=== PATIENT | male | born 1995 | race Caucasian/White ===

== ENCOUNTER 2016-12-22 23:20 | Emergency (ER) | payer OTHER ==
[2016-12-22 23:39] VITALS: TEMP 98.9
[2016-12-23] MEDS ORDERED: SODIUM CHLORIDE 0.9% 1,000 ML IV STA (00:24)
[2016-12-23 01:20] LABS: Basophils # (A) 0.1 k/uL (0-0.2); Basophils % (A) 0 %; CH 29.6; CHCM 34.6; Eosinophils # (A) 0.1 k/uL (0-0.7); Eosinophils % (A) 1 %; HCT 44.7 % (39.0-53.0); HDW 2.36; HGB 14.9 gm/dL (13.0-17.5); Luc # (Auto) 0.13; Luc % (Auto) 1; Lymphocytes % (A) 16 %; MCH 28.6 pg (25.0-35.0); MCHC 33.3 g/dL (31.0-37.0); MCV 85.9 fL (80.0-100.0); Mean Platelet Volume 7.5; Monocytes # (A) 0.4 k/uL (0-1.0); Monocytes % (A) 3 %; Neutrophils # (A) 9.8 k/uL (1.3-7.7); Neutrophils % (A) 79 %; RBC 5.21 m/uL (4.30-5.90); RDW 13.1 % (11.5-15.5); WBC 12.5 k/uL (3.8-10.6); WBC (Perox) 11.16
[2016-12-23 01:35] LABS: ALT 44 U/L (21-72); AST 24 U/L (17-59); Acetaminophen <10.0 ug/mL; Alcohol <10 mg/dL; Alkaline Phosphatase 83 U/L (38-126); Anion Gap 13 mmol/L; Blood Urea Nitrogen 14 mg/dL (9-20); Calcium 9.9 mg/dL (8.4-10.2); Carbon Dioxide 23 mmol/L (22-30); Chloride 106 mmol/L (98-107); Glucose 90 mg/dL (74-99); Non-African American GFR(MDRD) >60 (>60 ml/min/1.73 sqM); Salicylate <1.0 mg/dL; Sodium 142 mmol/L (137-145); Total Bilirubin 0.3 mg/dL (0.2-1.3); Total Protein 7.6 g/dL (6.3-8.2)
--- NOTE | 2016-12-23 05:05 | ED ---
Overdose HPI - General Chief Complaint: Overdose Stated Complaint: Mental Health Time Seen by Provider: 12/23/16 00:23 Source: patient Mode of arrival: ambulatory Limitations: no limitations - History of Present Illness MD Complaint: intentional overdose Onset/Timin -: hour(s) Intent: want to escape How Overdose Was Discovered: other Treatments Prior to Arrival: none - Related Data Home Medications Medication Instructions Recorded Confirmed ARIPiprazole [Abilify] 5 mg PO DAILY 12/22/16 12/22/16 Cholecalciferol (Vitamin D3) 2,000 unit PO 12/22/16 [Vitamin D3] Clotrimazole Cream [Lotrimin Cream] 1 applic TOPICAL BID 12/22/16 12/22/16 Disulfiram [Antabuse] 250 mg PO 12/22/16 Nicotine [Nicoderm Cq] 1 patch TRANSDERM DAILY 12/22/16 12/22/16 Topiramate [Topamax] 25 mg PO BID 12/22/16 12/22/16 Venlafaxine HCl ER [Effexor Xr] 150 mg PO DAILY 12/22/16 12/22/16 traZODone HCL [Desyrel] 100 mg PO 12/22/16 Allergies Allergy/AdvReac Type Severity Reaction Status Date / Time haloperidol [From Haldol] Allergy Unknown Verified 12/22/16 23:39 Review of Systems ROS Statement: Those systems with pertinent positive or pertinent negative responses have been documented in the HPI. ROS Other: All systems not noted in ROS Statement are negative. Constitutional: Denies: fever, weakness Eyes: Denies: vision change Cardiovascular: Reports: palpitations. Denies: chest pain, syncope Gastrointestinal: Denies: abdominal pain, vomiting, diarrhea Musculoskeletal: Denies: back pain Skin: Denies: rash Neurological: Denies: headache, weakness, numbness Psychiatric: Reports: anxiety, depression. Denies: homicidal thoughts, suicidal thoughts Past Medical History Past Medical History: Asthma History of Any Multi-Drug Resistant Organisms: None Reported Past Surgical History: No Surgical Hx Reported Past Psychological History: Anxiety, Depression Smoking Status: Current every day smoker Past Alcohol Use History: Occasional Past Drug Use History: Cocaine, Methamphetamine General Exam Limitations: no limitations General appearance: alert, in no apparent distress Head exam: Present: atraumatic, normocephalic Eye exam: Present: normal appearance. Absent: scleral icterus, conjunctival injection Neck exam: Present: normal inspection Respiratory exam: Present: normal lung sounds bilaterally. Absent: respiratory distress, wheezes, rales, rhonchi, stridor Cardiovascular Exam: Present: regular rate, normal rhythm, normal heart sounds. Absent: systolic murmur, diastolic murmur, rubs, gallop GI/Abdominal exam: Present: soft. Absent: distended, tenderness, guarding, rebound Extremities exam: Present: normal inspection, normal capillary refill. Absent: pedal edema, calf tenderness Neurological exam: Present: alert Psychiatric exam: Present: normal affect, anxious, suicidal ideation. Absent: agitated, flat affect, manic, homicidal ideation Skin exam: Present: warm, dry, intact, normal color Course Vital Signs 12/22/16 12/23/16 23:33 06:03 Temperature 98.9 F Pulse Rate 83 70 Respiratory 18 20 Rate Blood Pressure 143/85 137/73 O2 Sat by Pulse 100 99 Oximetry Medical Decision Making - Medical Decision Making Following behavioral health assessment the patient is debbie for safety and feels he is safe to follow-up. We'll continue outpatient treatment. Discussed return parameters. - Lab Data Result diagrams: 12/23/16 00:55 12/23/16 00:55 Lab Results 12/23/16 12/23/16 12/23/16 Range/Units 00:35 00:55 00:55 WBC 12.5 H (3.8-10.6) k/uL RBC 5.21 (4.30-5.90) m/uL Hgb 14.9 (13.0-17.5) gm/dL Hct 44.7 (39.0-53.0) % MCV 85.9 (80.0-100.0) fL MCH 28.6 (25.0-35.0) pg MCHC 33.3 (31.0-37.0) g/dL RDW 13.1 (11.5-15.5) % Plt Count 248 (150-450) k/uL Neutrophils % 79 % Lymphocytes % 16 % Monocytes % 3 % Eosinophils % 1 % Basophils % 0 % Neutrophils # 9.8 H (1.3-7.7) k/uL Lymphocytes # 2.0 (1.0-4.8) k/uL Monocytes # 0.4 (0-1.0) k/uL Eosinophils # 0.1 (0-0.7) k/uL Basophils # 0.1 (0-0.2) k/uL Sodium 142 (137-145) mmol/L Potassium 4.0 (3.5-5.1) mmol/L Chloride 106 (98-107) mmol/L Carbon Dioxide 23 (22-30) mmol/L Anion Gap 13 mmol/L BUN 14 (9-20) mg/dL Creatinine 1.00 (0.66-1.25) mg/dL Est GFR (MDRD) Af Amer >60 (>60 ml/min/1.73 sqM) Est GFR (MDRD) Non-Af >60 (>60 ml/min/1.73 sqM) Glucose 90 (74-99) mg/dL Calcium 9.9 (8.4-10.2) mg/dL Total Bilirubin 0.3 (0.2-1.3) mg/dL AST 24 (17-59) U/L ALT 44 (21-72) U/L Alkaline Phosphatase 83 (38-126) U/L Total Protein 7.6 (6.3-8.2) g/dL Albumin 5.2 H (3.5-5.0) g/dL Salicylates <1.0 mg/dL Urine Opiates Screen Not Detected (NotDetected) Ur Oxycodone Screen Not Detected (NotDetected) Urine Methadone Screen Not Detected (NotDetected) Ur Propoxyphene Screen Not Detected (NotDetected) Acetaminophen <10.0 ug/mL Ur Barbiturates Screen Not Detected (NotDetected) U Tricyclic Antidepress Not Detected (NotDetected) Ur Phencyclidine Scrn Not Detected (NotDetected) Ur Amphetamines Screen Not Detected (NotDetected) U Methamphetamines Scrn Not Detected (NotDetected) U Benzodiazepines Scrn Not Detected (NotDetected) Urine Cocaine Screen Not Detected (NotDetected) U Marijuana (THC) Screen Not Detected (NotDetected) Serum Alcohol <10 mg/dL - EKG Data -: EKG Interpreted by [facility] EKG shows normal: sinus rhythm, axis (Normal), intervals (Normal), QRS complexes (Normal), ST-T waves (Normal) Rate: normal (Rate 87 bpm) Interpretation: normal EKG Disposition Clinical Impression: Adjustment disorder with anxiety Disposition: HOME SELF-CARE Condition: Good Instructions: Stress (ED), Mood Disorders (ED) Referrals: Nonstaff,Physician [Primary Care Provider] - 1-2 days
[2016-12-23 06:04] VITALS: BP 137/73; PULSE 70; RESP 20
== END 2016-12-23 06:04 | disposition home or self-care (01) ==
LOC: EC 23:20
DX: F43.22 Adjustment disorder with anxiety (principal); F32.9 Major depressive disorder, single episode, unspecified; R45.851 Suicidal ideations; F17.200 Nicotine dependence, unspecified, uncomplicated; Z88.8 Allergy status to other drugs, medicaments and biological substances; Z79.899 Other long term (current) drug therapy
CPT/HCPCS: 36415; 80053; 80306; 80320; 83520; 85025; 93005; 99285

== ENCOUNTER 2017-01-03 19:36 | Emergency (ER) | payer OTHER ==
[2017-01-03 19:48] VITALS: BP 140/69; PULSE 84; RESP 18; TEMP 98.4
--- NOTE | 2017-01-03 20:01 | ED ---
Wound/Laceration HPI - General Stated Complaint: hand lac Time Seen by Provider: 01/03/17 19:41 Source: RN notes reviewed - History of Present Illness Initial Comments: Patient is a pleasant 21-year-old male presenting to the emergency department with past medical history significant for psychiatric disorder who presents to the ED with a chief complaint of a small laceration to the right forearm wrist. Patient reports he was cleaning a porcelain cup on the cup broke and a piece of the cup caught his wrist. 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 He complained of significant bleeding which has since subsided. Patient denies any other injuries. Denies weakness to the wrist or hands. Complains of stinging discomfort at the area of the wound. Patient reports is otherwise been well without illness. There has been no cough, rhinorrhea, sore throat, chest pain, shortness of breath, abdominal pain, nausea, vomiting, diarrhea. - Related Data Home Medications Medication Instructions Recorded Confirmed ARIPiprazole [Abilify] 5 mg PO DAILY 12/22/16 12/22/16 Cholecalciferol (Vitamin D3) 2,000 unit PO 12/22/16 [Vitamin D3] Clotrimazole Cream [Lotrimin Cream] 1 applic TOPICAL BID 12/22/16 12/22/16 Disulfiram [Antabuse] 250 mg PO 12/22/16 Nicotine [Nicoderm Cq] 1 patch TRANSDERM DAILY 12/22/16 12/22/16 Topiramate [Topamax] 25 mg PO BID 12/22/16 12/22/16 Venlafaxine HCl ER [Effexor Xr] 150 mg PO DAILY 12/22/16 12/22/16 traZODone HCL [Desyrel] 100 mg PO 12/22/16 Allergies Allergy/AdvReac Type Severity Reaction Status Date / Time haloperidol [From Haldol] Allergy Unknown Verified 12/22/16 23:39 Review of Systems ROS Statement: Those systems with pertinent positive or pertinent negative responses have been documented in the HPI. ROS Other: All systems not noted in ROS Statement are negative. Past Medical History Past Medical History: Asthma History of Any Multi-Drug Resistant Organisms: None Reported Past Surgical History: No Surgical Hx Reported Past Psychological History: Anxiety, Depression Smoking Status: Current every day smoker Past Alcohol Use History: Occasional Past Drug Use History: Cocaine, Methamphetamine General Exam General appearance: alert, in no apparent distress Head exam: Present: atraumatic, normocephalic Eye exam: Present: normal appearance Skin exam: Present: warm, dry Expanded Type of lesion: Present: laceration (2 right wrist. Roughly 1 cm in diameter. It does not extend into deeper structures.) Procedures - Laceration Laceration #1 Consent Obtained: verbal consent Time Out Performed: Yes Indication: laceration Site: upper extremity (Right wrist volar aspect) Size (cm): 1 Description: linear Depth: simple, single layer Anesthetic Used: lidocaine 1% Anesthesia Technique: local infiltration Amount (mls): 1 Pre-repair: wound explored, irrigated extensively Type of Sutures: nylon Size of Sutures: 4-0 Number of Sutures: 1 Technique: simple, interrupted Patient Tolerated Procedure: well, no complications Medical Decision Making - Medical Decision Making Patient sustained a small superficial lacerations right volar wrist. Tendons were visualized and appear intact. There is good distal motor strength to flexion and extension. Wound was closed using 4-0 Vicryl. Patient tolerated procedure well. Patient will be discharged and has been instructed on wound care and follow-up. Disposition Clinical Impression: Laceration of wrist Disposition: HOME SELF-CARE Condition: Stable Instructions: Laceration (ED) Additional Instructions: Please keep wound clean, covered, and helper driver for 24 hours. Then about wound to be open to air. Watch wound for signs of infection such as redness, swelling, drainage, or increased pain. Should any of these symptoms occur, follow up in the ER or in the primary care doctor's office for evaluation. Sutures should be removed in 7-10 days. Referrals: Nonstaff,Physician [Primary Care Provider] - 1-2 days Time of Disposition: 20:04
== END 2017-01-03 20:19 | disposition home or self-care (01) ==
LOC: EC 19:36 → EEVIPCON 19:36 → EC 20:19
DX: S61.511A Laceration without foreign body of right wrist, initial encounter (principal); F32.9 Major depressive disorder, single episode, unspecified; F41.9 Anxiety disorder, unspecified; F17.200 Nicotine dependence, unspecified, uncomplicated; Z88.8 Allergy status to other drugs, medicaments and biological substances; Z79.899 Other long term (current) drug therapy; W26.9XXA Contact with unspecified sharp object(s), initial encounter; Y93.G1 Activity, food preparation and clean up
CPT/HCPCS: 12001; 99283

== ENCOUNTER 2023-07-09 19:04 | Emergency (ER) | payer OTHER ==
--- NOTE | 2023-07-09 19:42 | ED ---
Chest Pain HPI - General Chief Complaint: Chest Pain Stated Complaint: Dizziness Time Seen by Provider: 07/09/23 19:09 Source: EMS, RN notes reviewed, old records reviewed Mode of arrival: EMS Limitations: no limitations - History of Present Illness Initial Comments: This is a 27-year-old male to the ER for evaluation of severe weakness patient does report history of coronary disease.. Patient is having persistent chest pain shortness of breath patient is also having lightheadedness and chest pain. No travels no sick contacts no fever cough or congestion, no other complaints MD Complaint: chest pain, other (Dizziness) -: hour(s) Onset: during rest, during exertion Pain Location: substernal Pain Radiation: none Severity: mild Severity scale (1-10): 2 Consistency: constant Improves With: nothing Worsens With: nothing Anginal Symptoms: sense of impending doom Other Symptoms: palpitations Treatments Prior to Arrival: none - Related Data Home Medications Medication Instructions Recorded Confirmed ARIPiprazole [Abilify] 5 mg PO DAILY 12/22/16 01/03/17 Cholecalciferol (Vitamin D3) 2,000 unit PO DAILY 12/22/16 01/03/17 [Vitamin D3] Clotrimazole Cream [Lotrimin Cream] 1 applic TOPICAL BID 12/22/16 01/03/17 Disulfiram [Antabuse] 250 mg PO DAILY 12/22/16 01/03/17 Nicotine [Nicoderm Cq] 1 patch TRANSDERM DAILY 12/22/16 01/03/17 Topiramate [Topamax] 25 mg PO Q12H 12/22/16 01/03/17 Venlafaxine HCl ER [Effexor Xr] 150 mg PO DAILY 12/22/16 01/03/17 traZODone HCL [Desyrel] 100 mg PO HS 12/22/16 01/03/17 Allergies Allergy/AdvReac Type Severity Reaction Status Date / Time haloperidol [From Haldol] Allergy Anaphylaxis Verified 07/09/23 19:17 lactose AdvReac Nausea & Verified 07/09/23 19:17 Vomiting & Diarrhea Review of Systems ROS Statement: Those systems with pertinent positive or pertinent negative responses have been documented in the HPI. ROS Other: All systems not noted in ROS Statement are negative. EKG Findings - EKG Comments: EKG Findings:: EKG is sinus 66 TX 155 QRS 89 QTc 369 - EKG Results: EKG: interpreted by MARIUSZ Past Medical History Past Medical History: Asthma Additional Past Medical History / Comment(s): alcohol syndrome, pos PPD, neg chest xray- last xray 02/2013 History of Any Multi-Drug Resistant Organisms: None Reported Past Surgical History: No Surgical Hx Reported Past Psychological History: Anxiety, Depression Smoking Status: Current every day smoker Past Alcohol Use History: Daily, Occasional Past Drug Use History: Cocaine, Methamphetamine General Exam Limitations: no limitations General appearance: alert, in no apparent distress, anxious Head exam: Present: atraumatic, normocephalic, normal inspection Eye exam: Present: normal appearance, PERRL, EOMI. Absent: scleral icterus, conjunctival injection, periorbital swelling ENT exam: Present: normal exam, mucous membranes moist Neck exam: Present: normal inspection. Absent: tenderness, meningismus, lymphadenopathy Respiratory exam: Present: normal lung sounds bilaterally. Absent: respiratory distress, wheezes, rales, rhonchi, stridor Cardiovascular Exam: Present: regular rate, normal rhythm, normal heart sounds. Absent: systolic murmur, diastolic murmur, rubs, gallop, clicks GI/Abdominal exam: Present: soft, normal bowel sounds. Absent: distended, tenderness, guarding, rebound, rigid Extremities exam: Present: normal inspection, full ROM, normal capillary refill. Absent: tenderness, pedal edema, joint swelling, calf tenderness Back exam: Present: normal inspection Neurological exam: Present: alert, oriented X3, CN II-XII intact Psychiatric exam: Present: normal affect, normal mood Skin exam: Present: warm, dry, intact, normal color. Absent: rash Course Vital Signs 07/09/23 07/09/23 07/09/23 19:13 20:16 21:43 Temperature 97.8 F 98.5 F Pulse Rate 60 73 70 Respiratory 18 18 18 Rate Blood Pressure 172/106 159/96 136/89 O2 Sat by Pulse 100 98 100 Oximetry - Reevaluation(s) Reevaluation #1: 07/09/23 Medical records reviewed Reevaluation #2: 07/09/23 Patient's symptoms improved Reevaluation #3: 07/09/23 Patient informed of results and questions answered Reevaluation #4: Was pt. sent in by a medical professional or institution (Dr., PA, WATER GAS OPERATOR, urgent care, hospital, or long term...) When possible be specific @ -no Did you speak to anyone other than the patient for history (EMS, parent, family, police, friend...)? What history was obtained from this source @ -no Did you review nursing and triage notes (agree or disagree)? Why? @ -agree Are old charts reviewed (outside hosp., previous admission, EMS record, old EKG, old radiological studies, urgent care reports/EKG's, long term records)? Report findings @ -yes Differential Diagnosis (chest pain, altered mental status, abdominal pain women, abdominal pain men, vaginal bleeding, weakness, fever, dyspnea, syncope, headache, dizziness, GI bleed, back pain, seizure, CVA, palpatations, mental health, musculoskeletal)? @ -prior EKG interpreted by me (3pts min.). @ -yes X-rays interpreted by me (1pt min.). @ -no CT interpreted by me (1pt min.). @ -no U/S interpreted by me (1pt. min.). @ -no What testing was considered but not performed or refused? (CT, X-rays, U/S, labs)? Why? @ -none What meds were considered but not given or refused? Why? @ -none Did you discuss the management of the patient with other professionals (professionals i.e. LOLA Perez, WATER GAS OPERATOR, lab, RT, psych nurse, social services technician, ship pilot dispatcher, teacher, head correction officer, onsite case manager)? Give summary @ -no Was smoking cessation discussed for >3mins.? @ -no Was critical care preformed (if so, how long)? @ -no Were there social determinants of health that impacted care today? How? (Homelessness, low income, unemployed, alcoholism, drug addiction, transportation, low edu. Level, literacy, decrease access to med. care, longterm, rehab)? @ -none Was there de-escalation of care discussed even if they declined (Discuss DNR or withdrawal of care, Hospice)? DNR status @ -no What co-morbidities impacted this encounter? (DM, HTN, Smoking, COPD, CAD, Cancer, CVA, ARF, Chemo, Hep., AIDS, mental health diagnosis, sleep apnea, morbid obesity)? @ -none Was patient admitted / discharged? Hospital course, mention meds given and route, prescriptions, significant lab abnormalities, going to OR and other pertinent info. @ - 27 male to ER with dizziness lightheadedness and chest pain. Patient is having persistent dizziness and chest pain here in the ER but feels well, symptoms are improving and he can be discharged home Discharge Undiagnosed new problem with uncertain prognosis? @ -no Drug Therapy requiring intensive monitoring for toxicity (Heparin, Nitro, Insulin, Cardizem)? @ -no Were any procedures done? @ -no Diagnosis/symptom? @ -Chest pain dizziness Acute, or Chronic, or Acute on Chronic? @ -Acute Uncomplicated (without systemic symptoms) or Complicated (systemic symptoms)? @ -Complicated Side effects of treatment? @ -no Exacerbation, Progression, or Severe Exacerbation? @ -exacerbation Poses a threat to life or bodily function? How? (Chest pain, [place], [place], pneumonia, PE, COPD, DKA, ARF, appy, cholecystitis, CVA, Diverticulitis, Homicidal, Suicidal, threat to staff... and all critical care pts) @ -yes with chest pain Reevaluation #5: Differential Chest Pain: Stable Angina, Unstable Angina, STEMI, NSTEMI Aortic Dissection, Pneumothorax, Musculoskeletal, Esophageal Spasm GERD, Cholecystitis, Pancreatitis, Zoster, this is not meant to be an all-inclusive list. Chest Pain MDM - MDM 27 male to ER with dizziness lightheadedness and chest pain. Patient is having persistent dizziness and chest pain here in the ER but feels well, symptoms are improving and he can be discharged home Disposition Clinical Impression: Atypical chest pain, Chest pain Disposition: HOME SELF-CARE Condition: Good Instructions (If sedation given, give patient instructions): Chest Pain (ED) Is patient prescribed a controlled substance at d/c from ED?: No Referrals: Nonstaff,Physician [Primary Care Provider] - 1-2 days Time of Disposition: 21:30
[2023-07-09 19:47] LABS: Glucose,Whole Blood 87 mg/dL (70-110)
[2023-07-09] MEDS: SODIUM CHLORIDE 0.9% 1,000 ML IV STA (20:23)
[2023-07-09 20:28] VITALS: RESP 18
[2023-07-09 20:31] LABS: Basophils % (A) 0 %; Eosinophils # (A) 0.1 k/uL (0-0.7); Eosinophils % (A) 1 %; HCT 41.4 % (39.0-53.0); HGB 14.4 gm/dL (13.0-17.5); Lymphocytes # (A) 1.5 k/uL (1.0-4.8); Lymphocytes % (A) 13 %; MCH 30.9 pg (25.0-35.0); MCHC 34.8 g/dL (31.0-37.0); MCV 88.7 fL (80.0-100.0); Mean Platelet Volume 8.2; Monocytes # (A) 0.7 k/uL (0-1.0); Monocytes % (A) 6 %; Neutrophils # (A) 9.3 k/uL (1.3-7.7); Neutrophils % (A) 79 %; Platelet Count 223 k/uL (150-450); RBC 4.66 m/uL (4.30-5.90); RDW 12.2 % (11.5-15.5); WBC 11.7 k/uL (3.8-10.6)
[2023-07-09 20:42] LABS: ALT 21 U/L (4-49); AST 26 U/L (17-59); African American GFR (CKD) >90 (>60 ml/min/1.73 sqM); Albumin 4.3 g/dL (3.5-5.0); Alcohol <10 mg/dL; Alkaline Phosphatase 60 U/L (38-126); Anion Gap 7 mmol/L; Blood Urea Nitrogen 7 mg/dL (9-20); Calcium 8.8 mg/dL (8.4-10.2); Carbon Dioxide 26 mmol/L (22-30); Chloride 99 mmol/L (98-107); Glucose 81 mg/dL (74-99); Lipase 69 U/L (23-300); Magnesium 1.8 mg/dL (1.6-2.3); Non-African American GFR(CKD) >90 (>60 ml/min/1.73 sqM); Potassium 4.4 mmol/L (3.5-5.1); Sodium 132 mmol/L (137-145); Total Bilirubin 0.5 mg/dL (0.2-1.3); Total Protein 6.8 g/dL (6.3-8.2)
[2023-07-09 20:49] LABS: INR 1.1 (<1.2); Partial Thromboplastin Time 29.9 sec (22.0-30.0); Prothrombin Time 11.6 sec (10.0-12.5)
[2023-07-09 20:50] LABS: NT-Pro-B-Type Natriuretic Pept <20 pg/mL
[2023-07-09 21:49] VITALS: BP 136/89; PULSE 70; TEMP 98.5
== END 2023-07-09 21:47 | disposition home or self-care (01) ==
LOC: EC 19:04
DX: R07.89 Other chest pain (principal); J45.909 Unspecified asthma, uncomplicated; F17.200 Nicotine dependence, unspecified, uncomplicated; F14.90 Cocaine use, unspecified, uncomplicated; F15.90 Other stimulant use, unspecified, uncomplicated; Z86.59 Personal history of other mental and behavioral disorders; Z91.011 Allergy to milk products; Z88.8 Allergy status to other drugs, medicaments and biological substances; Z79.899 Other long term (current) drug therapy
CPT/HCPCS: 36415; 93005; 83880; 80053; 83690; 83735; 84484; 85025; 85610; 85730; 99285; 96360; G0480; 80320